=== PATIENT | female | born 1960 | race Caucasian/White ===

== ENCOUNTER → 2018-01-02 | Outpatient (CLI) | payer BC ==
[2015-01-21 23:15] VITALS: BP 150/80
[~2018-01-02] MED LIST: ALBU8.5H8 INH; ATOR20TA PO; CETI10TA22 PO; LEVO150T5 PO; MONT10TA6 PO; NEBI5TAB2 PO
--- NOTE | 2018-01-02 09:46 | RAD ---
DATE: 01/02/2018 EXAM: MAMMO REYNA SCREENING BILATERAL HISTORY: Routine screening COMPARISON: 07/21/2014 This study was interpreted with the benefit of Computerized Aided Detection (CAD). The breast parenchyma shows scattered fibroglandular densities. Breast parenchyma level B. FINDINGS: 2-D and 3-D tomosynthesis imaging was performed in CC and MLO projections. Several small smooth nodules in the lateral aspect of left breast appear unchanged, although more clearly delineated on today's 3-D images. No enlarging breast densities or architectural distortion is identified. Benign type calcifications are present. No suspicious microcalcifications have developed. IMPRESSION: Stable mammograms without evidence of malignancy. BI-RADS CATEGORY: 2 BENIGN FINDING(S) RECOMMENDED FOLLOW-UP: 12M 12 MONTH FOLLOW-UP PQRS compliance statement: Patient information was entered into a reminder system with a target due date for the next mammogram. Mammography is a sensitive method for finding small breast cancers, but it does not detect them all and is not a substitute for careful clinical examination. A negative mammogram does not negate a clinically suspicious finding and should not result in delay in biopsying a clinically suspicious abnormality. "Our facility is accredited by the [employer] Mammography Program."
== END | disposition home or self-care (01) ==
LOC: MAMMO 08:05
PROVIDERS: ATTEND Family Medicine
DX: Z12.31 Encounter for screening mammogram for malignant neoplasm of breast (principal); I10 Essential (primary) hypertension; E78.00 Pure hypercholesterolemia, unspecified; E03.9 Hypothyroidism, unspecified
CPT/HCPCS: 77063; 77067

== ENCOUNTER 2020-01-19 13:00 | Emergency (ER) | payer BC ==
[~2020-01-19] VITALS: Ht 162.6 cm; Wt 135.0 kg
[~2020-01-19 13:00] MED LIST changes: +ALBU2.5V8 INH; -ALBU8.5H8 INH; -CETI10TA22 PO; +CETI10TA24 PO; -MONT10TA6 PO; +MONT10TA80 PO
[2020-01-19 13:05] VITALS: BP 132/44
--- NOTE | 2020-01-19 13:38 | RAD ---
Right knee x-rays 3 views HISTORY: Fall, pain. FINDINGS: No fracture. No dislocation. Osteoarthritic change with mild joint space narrowing and bone spurs at all 3 compartments. Soft tissues are unremarkable. Mild bony sclerosis distal femoral metaphysis may be a enchondroma or bone infarct. IMPRESSION: No acute osseous injury. Electronically signed by: Jose Montgomery MD (01/19/2020 1:35 PM) [facility]
[2020-01-19] MEDS ORDERED: HYDR-3165 PO (13:44)
--- NOTE | 2020-01-19 13:44 | PHYS DOC ---
Past History Past Medical History: Asthma, Depression, High Cholesterol, Hypertension, Hypothyroid Past Surgical History: Hysterectomy Alcohol Use: None Drug Use: None General Adult EDM: Chief Complaint: KNEE INJURY HPI: HPI: 59-year-old female presents with right knee pain. The patient was walking on her driveway when she slipped on some mud. Her left leg went forward and her right leg went backwards and outwards. She landed on the ground and onto her c hest. She had some sternal pain yesterday but that has resolved. Today she continues to have the knee pain. She is taken ibuprofen and Tylenol without much relief. She can walk on it but only for very short distances. It does not feel unstable. It is mostly painful along the medial side of the knee. She denies any other injuries at this time. She was advised to come by her PCP because it is the weekend and the office is closed. Review of Systems: Review of Systems: Constitutional: Denies fever or chills Eyes: Denies change in visual acuity HENT: Denies nasal congestion or sore throat Respiratory: Denies cough or shortness of breath Cardiovascular: Denies chest pain or edema GI: Denies abdominal pain, nausea, vomiting, bloody stools or diarrhea : Denies dysuria Musculoskeletal: Right knee pain Integument: Denies rash Neurologic: Denies headache, focal weakness or sensory changes Endocrine: Denies polyuria or polydipsia Lymphatic: Denies swollen glands Psychiatric: Denies depression or anxiety Heart Score: Risk Factors: Risk Factors: DM, Current or recent (<one month) smoker, HTN, HLP, family history of CAD, obesity. Risk Scores: Score 0 - 3: 2.5% MACE over next 6 weeks - Discharge Home Score 4 - 6: 20.3% MACE over next 6 weeks - Admit for Clinical Observation Score 7 - 10: 72.7% MACE over next 6 weeks - Early Invasive Strategies Allergies: Allergies: Allergies Coded Allergies Type Severity Reaction Last Updated Verified Sulfa (Sulfonamide Antibiotics) Allergy Unknown 01/21/15 No Physical Exam: PE: Constitutional: Well developed, well nourished, no acute distress, non-toxic appearance. [] HENT: Normocephalic, atraumatic, bilateral external ears normal, oropharynx moist, no oral exudates, nose normal. [] Eyes: PERRLA, EOMI, conjunctiva normal, no discharge. [] Neck: Normal range of motion, no tenderness, supple, no stridor. [] Cardiovascular:Heart rate regular rhythm, no murmur [] Lungs & Thorax: Bilateral breath sounds clear to auscultation [] Abdomen: Bowel sounds normal, soft, no tenderness, no masses, no pulsatile masses. [] Skin: Warm, dry, no erythema, no rash. [] Back: No tenderness, no CVA tenderness. [] Extremities: Right knee negative anterior and posterior drawer, no obvious def ormity, no ecchymosis. Medial pain with varus stress, no pain with valgus, no pain along the joint line. [] Neurologic: Alert and oriented X 3, normal motor function, normal sensory function, no focal deficits noted. [] Psychologic: Affect normal, judgement normal, mood normal. [] Current Patient Data: Vital Signs: Vital Signs Date Time Temp Pulse Resp B/P (MAP) Pulse Ox O2 Delivery O2 Flow Rate FiO2 01/19/20 13:05 99.0 63 16 132/44 (73) 95 Room Air EKG: EKG: [] Radiology/Procedures: Radiology/Procedures: [] Course & Med Decision Making: Course & Med Decision Making Pertinent Labs and Imaging studies reviewed. (See chart for details) Based on my exam, the patient appears to have a medial collateral ligament strain. Her x-rays are negative for fracture. I have advised rest, ice, ibuprofen 3 times a day, and I will give her a short course of [place] 5/325 for pain. She is stable for discharge at this time. [] Dragon Disclaimer: Muriel Disclaimer: This electronic medical record was generated, in whole or in part, using a voice recognition dictation system. Departure Departure: Impression: Primary Impression: Medial collateral ligament sprain of knee Qualified Codes: S83.411A - Sprain of medial collateral ligament of right knee, initial encounter Disposition: 01 HOME/RESIDENCE PRIOR TO ADM Condition: STABLE Referrals: MANDI JAIN MD (PCP) Patient Instructions: Medial Collateral Knee Ligament Sprain with Phase I Rehab-[facility] Scripts Hydrocodone Bit/Acetaminophen ([place] 5-325 TABLET) 1 Each Tablet 1 TAB PO PRN Q6HRS PRN for PAIN, #10 TAB 0 Refills Prov: MARTA ASHLEY DO 01/19/20 MARTA ASHLEY DO January 19, 2020 13:44
== END 2020-01-19 13:56 | disposition home or self-care (01) ==
LOC: ER 13:00
DX: S83.411A Sprain of medial collateral ligament of right knee, initial encounter (principal); R07.2 Precordial pain; J45.909 Unspecified asthma, uncomplicated; E78.00 Pure hypercholesterolemia, unspecified; I10 Essential (primary) hypertension; E03.9 Hypothyroidism, unspecified; Z88.2 Allergy status to sulfonamides; W18.39XA Other fall on same level, initial encounter; Y93.01 Activity, walking, marching and hiking; Y92.89 Other specified places as the place of occurrence of the external cause; Y99.8 Other external cause status
CPT/HCPCS: 73562; 99283

== ENCOUNTER → 2021-03-23 | Outpatient (CLI) | payer BC ==
[~2021-03-23] MED LIST changes: -CETI10TA24 PO; +CETI10TA74 PO; +HYDR-3165 PO
--- NOTE | 2021-03-23 12:36 | RAD ---
EXAM: Right elbow, 3 views. HISTORY: Pain. COMPARISON: None. FINDINGS: 3 views of the right elbow are obtained. There is no fracture, dislocation or subluxation. There is no elbow effusion. IMPRESSION: No acute osseous finding. Electronically signed by: Gricelda Mann MD (03/23/2021 12:34 PM) [id number]
== END ==
LOC: RAD 08:16
PROVIDERS: ATTEND Family Medicine
DX: M25.521 Pain in right elbow (principal)
CPT/HCPCS: 73080